=== PATIENT | male | born 1950 | race Caucasian/White ===

== ENCOUNTER 2021-03-31 10:23 | Emergency (ER) | payer OTHER, MEDICAID ==
[~2021-03-31] VITALS: Ht 160 cm; Wt 108.9 kg
--- NOTE | 2021-03-31 10:40 | NUR ---
DR RILEY IN TO ASSESS
[2021-03-31 11:07] LABS: BASOPHILS % (AUTO) 0.2 % (0.0-2.0); EOSINOPHILS % (AUTO) 0.3 % (0.0-4.0); HEMATOCRIT 39.4 % (36-54); HEMOGLOBIN 13.2 g/dL (14.0-18.0); LYMPHOCYTES # (AUTO) 0.8 K/uL (1.0-5.5); LYMPHOCYTES % (AUTO) 6.6 % (20.5-51.5); MEAN CORPUSCULAR HEMOGLOBIN 30 pg (27-31); MEAN CORPUSCULAR HGB CONC 34 % (32-36); MEAN CORPUSCULAR VOLUME 91 fL (79.0-98.0); MONOCYTES # (AUTO) 0.7 K/uL (0.0-1.0); MONOCYTES % (AUTO) 5.4 % (1.7-9.3); NEUTROPHILS # (AUTO) 10.6 K/uL (1.8-7.7); NEUTROPHILS % (AUTO) 87.5 % (40.0-70.0); PLATELET COUNT (AUTO) 199 K/uL (130-430); RED BLOOD CELL COUNT(AUTO) 4.34 MIL/uL (4.2-6.2); WHITE BLOOD COUNT (AUTO) 12.1 K/uL (4.8-10.8)
[2021-03-31 11:16] VITALS: BP_SYST 195
[2021-03-31 11:26] LABS: CALCIUM 8.6 mg/dL (8.4-11.0); CREATININE 0.72 mg/dL (0.55-1.30); POTASSIUM 3.9 mmol/L (3.5-5.1)
--- NOTE | 2021-03-31 11:27 | NUR ---
Patient to ER bed 02 to gown for evaluation. Side rails up.
[2021-03-31 11:31] LABS: ALBUMIN 3.1 g/dL (3.4-4.8); TOTAL BILIRUBIN 0.7 mg/dL (0.0-1.0)
--- NOTE | 2021-03-31 11:40 | NUR ---
RECEIVED AND IN ROOM, PT CALM, ALERT, DYSPNEIC, TACHYPNEIC, SKIN WARM AND DRY. BLE PITTING EDEMA 2+
[2021-03-31 11:49] LABS: BILIRUBIN,URINE NEGATIVE (NEGATIVE); BLOOD, URINE NEGATIVE (NEGATIVE); CLARITY/URINE CLEAR (CLEAR); COLOR,URINE YELLOW (YELLOW); GLUCOSE,URINE NEGATIVE (NEGATIVE); KETONES,URINE NEGATIVE (NEGATIVE); LEUKOCYTE ESTERASE ,URINE NEGATIVE (NEGATIVE); NITRITE, URINE NEGATIVE (NEGATIVE); PROTEIN URINE 2+ (NEGATIVE); UROBILINOGEN,URINE 0.2 (0.2-1.0)
--- NOTE | 2021-03-31 12:05 | NUR ---
COVID-19 SWAB SENT
[2021-03-31] MEDS ORDERED: ONDANSETRON HCL 4 MG/2 ML VIAL IM ONE (13:00)
[2021-03-31] MEDS ORDERED: MORPHINE 4 MG INJ. 4 MG/ML VIAL IM ONE (13:00)
[2021-03-31] MEDS ORDERED: CYCL10TA24 PO (13:24)
[2021-03-31] MEDS ORDERED: IBUP-1969 PO (13:24)
[2021-03-31] MEDS ORDERED: cefTRIAXone 1 GM in LIDOCAINE 1%, 20 ML MDV 2.1 ML IM ONE (13:30)
[2021-03-31 13:55] VITALS: BP_SYST 135
--- NOTE | 2021-03-31 13:55 | NUR ---
Patient given written and verbal discharge instructions and verbalizes understanding. ER MD discussed with patient the results and treatment provided. Patient in stable condition. ID arm band removed. IV catheter removed intact and dressing applied, no active bleeding. Rx of FLEXERIL given. Patient educated on pain management and to follow up with PMD. Pain Scale 2/10 Opportunity for questions provided and answered. Medication side effect fact sheet provided.
== END 2021-03-31 13:55 | disposition home or self-care (01) ==
LOC: SED 10:23
DX: M54.50 Low back pain, unspecified (principal); Z79.899 Other long term (current) drug therapy; Z20.822 Contact with and (suspected) exposure to COVID-19
CPT/HCPCS: 36415; 74176; 76376; 80053; 81003; 83690; 83880; 84484; 85025; 87426; 93005; 96372; 99285; J2270; J2405